=== PATIENT | female | born 1995 | race Caucasian/White ===

== ENCOUNTER 2019-01-23 08:31 | Inpatient (IN) | payer MEDICAID ==
[2019-01-23 09:41] LABS: ADD MAN DIFF? NO
[2019-01-23] MEDS: LACTATED RINGER'S 1,000 ML IV (09:43)
[2019-01-23 09:46] LABS: INR 0.86; PROTIME 11.8 Sec (11.9-14.9); PT RATIO 0.9
[2019-01-23 09:47] LABS: PARTIAL THROMBOPLASTIN TIME 28.3 Sec (23.0-35.0)
[2019-01-23 09:49] LABS: BASOPHILS % 0.3 % (0.0-2.0); EOSINOPHILS % 0.2 % (0.0-7.0); HEMATOCRIT 36.9 % (37.0-47.0); HEMOGLOBIN 11.5 g/dl (12.0-16.0); LYMPHOCYTES # 1.5 10^3/ul (0.8-2.9); LYMPHOCYTES % 13.4 % (15.0-51.0); MEAN CORPUSCULAR HEMOGLOBIN 25.1 pg (29.0-33.0); MEAN CORPUSCULAR HGB CONC 31.2 g/dl (32.0-37.0); MEAN CORPUSCULAR VOLUME 80.6 fl (82.0-101.0); MEAN PLATELET VOLUME 12.6 fl (7.4-10.4); MONOCYTE # 0.6 10^3/ul (0.3-0.9); MONOCYTES % 4.8 % (0.0-11.0); NEUTROPHIL # 9.3 10^3/ul (1.6-7.5); NEUTROPHILS % 80.9 % (39.0-77.0); PLATELET COUNT 233 10^3/UL (140-415); RED BLOOD COUNT 4.58 10^6/ul (4.20-5.40); RED CELL DISTRIBUTION WIDTH 17.5 % (11.5-14.5)
[2019-01-23 09:49] LABS: WHITE BLOOD COUNT 11.5 10^3/ul (4.8-10.8)
[2019-01-23] MEDS: AMPICILLIN 2 GM/NS (PMX) 100 ML IV (09:50)
[2019-01-23] MEDS ORDERED: CARBOPROST 250 MCG INJ IM ×2 (10:00→13:00)
[2019-01-23] MEDS ORDERED: METHYLERGONOVINE 0.2 MG INJ IM ×2 (10:00→13:00)
[2019-01-23] MEDS ORDERED: BUTORPHANOL 2 MG INJ IV (10:00)
[2019-01-23] MEDS ORDERED: LIDOCAINE 1% (MPF) 30 ML INJ INJ (10:00)
[2019-01-23] MEDS ORDERED: MISOPROSTOL 200 MCG TAB PR ×2 (10:00→13:00)
[2019-01-23] MEDS: MINERAL OIL 30ML CUP PO (10:00)
[2019-01-23] MEDS ORDERED: OXYTOCIN 30 UNITS/LR 500 ML IV ×2 (10:00→13:00)
[2019-01-23] MEDS: OXYTOCIN 30 UNITS/LR 500 ML IV ×3 (11:52→15:41)
[2019-01-23 12:39] LABS: HIV 1&2 ANTIBODY NEGATIVE (NEGATIVE)
[2019-01-23] MEDS ORDERED: ZOLPIDEM 5 MG TAB PO (13:00)
[2019-01-23] MEDS ORDERED: SENNA/DOCUSATE NA (8.6MG/50MG) TAB PO (13:00)
[2019-01-23] MEDS ORDERED: NACL 0.9% 3 ML SYG IV (13:00)
[2019-01-23] MEDS ORDERED: AMPICILLIN 1 GM/NS (PMX) 50 ML IV (13:00)
[2019-01-23] MEDS: WITCH HAZEL/GLYCERIN PAD PR (13:22)
[2019-01-23] MEDS: BENZOCAINE 20% 56 ML SPRAY TOP (13:22)
[2019-01-23] MEDS: LANOLIN HPA 1 PKT TOP (13:23)
[2019-01-23] MEDS: IBUPROFEN 600 MG TAB PO ×2 (13:23→18:00)
[2019-01-23 15:46] LABS: RAPID PLASMA REAGIN NONREACTIVE (NR)
[2019-01-23] MEDS: OXYCODONE/ASPIRIN (4.88/325) TAB PO (17:59)
[2019-01-23 18:02] LABS: HEPATITIS B SURFACE ANTIGEN NEGATIVE (NEGATIVE)
[2019-01-23] MEDS: SENNA/DOCUSATE NA (8.6MG/50MG) TAB PO (21:00)
[2019-01-24] MEDS: IBUPROFEN 600 MG TAB PO ×5 (01:30→23:51)
[2019-01-24 09:00] LABS: ADD MAN DIFF? NO
[2019-01-24 09:02] LABS: BASOPHILS % 0.4 % (0.0-2.0); EOSINOPHILS # 0.1 10^3/ul (0.0-0.5); EOSINOPHILS % 0.6 % (0.0-7.0); HEMATOCRIT 30.8 % (37.0-47.0); HEMOGLOBIN 9.8 g/dl (12.0-16.0); LYMPHOCYTES # 1.9 10^3/ul (0.8-2.9); LYMPHOCYTES % 19.7 % (15.0-51.0); MEAN CORPUSCULAR HEMOGLOBIN 25.3 pg (29.0-33.0); MEAN CORPUSCULAR HGB CONC 31.8 g/dl (32.0-37.0); MEAN CORPUSCULAR VOLUME 79.6 fl (82.0-101.0); MEAN PLATELET VOLUME 12.4 fl (7.4-10.4); MONOCYTE # 0.4 10^3/ul (0.3-0.9); MONOCYTES % 4.5 % (0.0-11.0); NEUTROPHIL # 7.2 10^3/ul (1.6-7.5); NEUTROPHILS % 74.3 % (39.0-77.0); PLATELET COUNT 198 10^3/UL (140-415); RED BLOOD COUNT 3.87 10^6/ul (4.20-5.40); RED CELL DISTRIBUTION WIDTH 17.1 % (11.5-14.5)
[2019-01-24 09:02] LABS: WHITE BLOOD COUNT 9.7 10^3/ul (4.8-10.8)
[2019-01-24] MEDS: SENNA/DOCUSATE NA (8.6MG/50MG) TAB PO ×2 (10:21→21:01)
[2019-01-24 19:52] LABS: RUBELLA ANTIBODY - IGG 1.97 index
[2019-01-25] MEDS: IBUPROFEN 600 MG TAB PO ×2 (05:48→11:57)
[2019-01-25] MEDS: DIPHTH/TET/ACEL PERTUSS (ADULT) 0.5 ML VIAL IM* (09:00)
[2019-01-25] MEDS: SENNA/DOCUSATE NA (8.6MG/50MG) TAB PO (09:05)
[2019-01-25] MEDS: LANOLIN HPA 1 PKT TOP (11:59)
[2019-01-26 14:29] LABS: RUBELLA ANTIBODY - IGM <20.00 AU/mL
== END 2019-01-25 17:55 | disposition home or self-care (01) | DRG 807 ==
LOC: OBT 08:31 → L-D 08:31 → OBT 08:47 → L-D 08:47 → PP1 12:32
PROVIDERS: Obstetrics & Gynecology
PROC: 10E0XZZ Delivery of Products of Conception, External Approach (ICD-10-PCS; principal; 2019-01-23)
PROC: 0HQ9XZZ Repair Perineum Skin, External Approach (ICD-10-PCS; 2019-01-23)
PROC: 4A1HXCZ Monitoring of Products of Conception, Cardiac Rate, External Approach (ICD-10-PCS; 2019-01-23)
DX: O60.14X0 Preterm labor third trimester with preterm delivery third trimester, not applicable or unspecified (principal); Z37.0 Single live birth; O70.0 First degree perineal laceration during delivery; Z3A.36 36 weeks gestation of pregnancy
CPT/HCPCS: 85025; 85610; 85730; 86592; 86703; 86762; 86850; 86900; 86901; 87340